=== PATIENT | female | born 1935 | race Caucasian/White ===

== ENCOUNTER 2022-07-20 10:19 | Day surgery (SDC) | payer MEDICARE ==
[~2022-07-20] VITALS: Ht 162.6 cm; Wt 68.1 kg
[2022-07-20] VITALS (25 sets, daily range): BP systolic 109–171; BP diastolic 42–90
[~2022-07-20 10:19] MED LIST: ASPI-529 PO; ATOR10TA70 PO; CARV3.122 PO; NITR0.4T51 SL
[2022-07-20] MEDS ORDERED: normal saline 1000ml 1,000 ML IV SCH (10:45)
[2022-07-20] MEDS ORDERED: MIDAZolam 1mg/ml 10ml vial IV ONE (10:45)
[2022-07-20] MEDS ORDERED: fentaNYL/PF 50MCG/1 ML 2ML syringe IV ONE (10:45)
[2022-07-20] MEDS ORDERED: NO HOME MEDS (10:48)
== END 2022-07-20 15:10 | disposition home or self-care (01) ==
LOC: SSTAY O 10:19 → EDSTATUS 14:00 → SSTAY O 15:10
PROVIDERS: ATTEND Student in an Organized Health Care Education/Training Program
DX: I34.0 Nonrheumatic mitral (valve) insufficiency (principal); J44.9 Chronic obstructive pulmonary disease, unspecified; I10 Essential (primary) hypertension; I25.10 Atherosclerotic heart disease of native coronary artery without angina pectoris; I73.9 Peripheral vascular disease, unspecified; Z95.0 Presence of cardiac pacemaker; Z95.4 Presence of other heart-valve replacement; Z79.899 Other long term (current) drug therapy; Z98.890 Other specified postprocedural states; Z95.2 Presence of prosthetic heart valve
CPT/HCPCS: 93312; 93325; J2250; J3010; J7030; 93308; A4620

== ENCOUNTER 2022-08-27 10:47 | Day surgery (SDC) | payer MEDICARE ==
[2022-08-26 09:03] LABS: BASOPHILS # (AUTO) 0.1 X10'3 (0-0.2); BASOPHILS % (AUTO) 0.9 % (0-1); EOSINOPHILS # (AUTO) 0.3 X10'3 (0-0.9); EOSINOPHILS % (AUTO) 5.2 % (0-6); HEMATOCRIT 39.2 % (35.0-45.0); HEMOGLOBIN 13.2 g/dl (12.0-16.0); LYMPHOCYTES % (AUTO) 16.3 % (21-51); MEAN CORPUSCULAR HEMOGLOBIN 29.5 PG (27.0-31.0); MEAN CORPUSCULAR HGB CONC 33.8 g/dL (33.0-36.5); MEAN CORPUSCULAR VOLUME 87.3 FL (78-98); MEAN PLATELET VOLUME 7.1 FL (7.4-10.4); MONOCYTES # (AUTO) 0.5 X10'3 (0-0.9); MONOCYTES % (AUTO) 8.4 % (2-12); NEUTROPHILS % (AUTO) 69.2 % (42-75); PLATELET COUNT 198 X10'3 (140-440); RED BLOOD COUNT 4.49 X10'6 (4.20-5.60); RED CELL DISTRIBUTION WIDTH 13.5 % (11.5-14.5); WHITE BLOOD COUNT 5.9 X10'3 (4.5-11.0)
[2022-08-26 09:17] LABS: ALBUMIN 3.4 G/DL (3.4-5.0); ANION GAP 7 (8-16); APTT 26 SECONDS (22-32); BLOOD UREA NITROGEN 20 MG/DL (7-18); BUN/CREATININE RATIO 22.5 (6.6-38.0); CALCIUM 9.1 MG/DL (8.5-10.1); CHLORIDE 105 MMOL/L (99-107); CREATININE 0.89 MG/DL (0.40-0.90); GLUCOSE 109 MG/DL (70-104); POTASSIUM 4.1 MMOL/L (3.5-5.1); SODIUM 142 MMOL/L (135-145); TOTAL CARBON DIOXIDE 30.5 MMOL/L (24-32); eGFR 60 ML/MIN
[~2022-08-27] VITALS: Ht 162.6 cm; Wt 67.5 kg
[2022-08-27] VITALS (8 sets, daily range): BP systolic 131–150; BP diastolic 58–72
[~2022-08-27 10:47] MED LIST changes: -ASPI-529 PO; -ATOR10TA70 PO; -CARV3.122 PO; -NITR0.4T51 SL; +NO HOME MEDS
[2022-08-27] MEDS ORDERED: normal saline 1,000 ML IV SCH (11:10)
[2022-08-27] MEDS ORDERED: LORazepam 0.5 MG tablet PO PRN (11:10)
[2022-08-27] MEDS ORDERED: diphenhydrAMINE 25mg capsule PO PRN (11:10)
[2022-08-27] MEDS ORDERED: LIDOcaine 1% 30ml preserv. free vial ONE (12:41)
[2022-08-27] MEDS ORDERED: midazolam 1 mg/ML 2ml injection ONE (12:41)
[2022-08-27] MEDS ORDERED: fentaNYL/PF 50MCG/1 ML 2ML syringe ONE (12:41)
[2022-08-27] MEDS ORDERED: iohexol 350MG/ML 100ml bottle IV ONE (12:42)
[2022-08-27] MEDS ORDERED: iohexol 350 MG/ML 50ML vial IV ONE ×2 (13:26→13:31)
[2022-08-27] MEDS ORDERED: HYDROcodone/acetaminophen 5mg/325mg tablet PO PRN (14:15)
[2022-08-27] MEDS ORDERED: HYDROcodone/acetaminophen 10/325mg tab PO PRN (14:15)
== END 2022-08-27 17:20 | disposition home or self-care (01) ==
LOC: SSTAY O 10:47
PROVIDERS: ATTEND Student in an Organized Health Care Education/Training Program
DX: R94.39 Abnormal result of other cardiovascular function study (principal); I25.10 Atherosclerotic heart disease of native coronary artery without angina pectoris; I10 Essential (primary) hypertension; Z79.01 Long term (current) use of anticoagulants; I25.82 Chronic total occlusion of coronary artery; J44.9 Chronic obstructive pulmonary disease, unspecified; I73.9 Peripheral vascular disease, unspecified; Z95.0 Presence of cardiac pacemaker; Z79.899 Other long term (current) drug therapy; Z98.890 Other specified postprocedural states
CPT/HCPCS: 36415; 80048; 85025; 85610; 85730; 93005; 93459; 93567; 99152; 99153; C1760; C1769; C1894; J1644; J2250; J3010; J3490; J7030; Q0163; Q9967; A4615; A4620; A6258